=== PATIENT | male | born 1995 | race Caucasian/White ===

== ENCOUNTER → 2018-09-02 | Outpatient (CLI) | payer BC ==
[~2018-09-02] MED LIST: AMOX500C2 PO; CFR250T PO; ONDA8TAB9 PO; PRD20T PO; PRM25T PO; TRAM50TA2 PO
--- NOTE | 2018-09-02 15:31 | Diagnostic Imaging Report ---
CLINICAL INDICATION: Patient states she has been having increased headaches, migraines. EXAM: MRI of the brain performed without IV contrast. Sequences include axial DWI, ADC map, axial T2, axial FLAIR, axial T1, coronal gradient echo, and sagittal T1. COMPARISON: None. FINDINGS: There are low-lying cerebellar tonsils of up to 7 mm, which is most pronounced on the right side. There is also tented appearance of the cerebellar tonsils. There is crowding of the foramen magnum. There is no cervical cord syrinx. There is no evidence of acute cerebral infarct, intracranial hemorrhage, or gross mass effect. The brain parenchymal volume appears appropriate for patient's age. There are a few focal areas of high T2 signal matter changes involving the bilateral frontal lobe subcortical white matter regions (right side more than the left); the largest area measures roughly 3 mm. There is normal martinez-white matter distinction. There is no significant midline shift or herniation. There is no evidence of hydrocephalus. The basal cisterns are unremarkable. The skull, extracranial soft tissue, and orbits are unremarkable. The paranasal sinuses are unremarkable. Temporal bones show no significant abnormality. IMPRESSION: 1: There is no evidence of acute intracranial process. 2: Chiari type I malformation. 3: There are nonspecific focal areas of high T2 signal white matter changes in both frontal lobe regions. These findings are nonspecific, but may be seen in patients with chronic migraine headaches. Dictated by: Dictated on workstation # [id number]
== END ==
LOC: RAD 14:21
PROVIDERS: ATTEND Nurse Practitioner Family
DX: G93.5 Compression of brain (principal); R90.82 White matter disease, unspecified
CPT/HCPCS: 70551

== ENCOUNTER 2021-03-12 22:13 | Emergency (ER) | payer OTHER ==
[~2021-03-12] VITALS: Ht 182.8 cm; Wt 100.0 kg
--- NOTE | 2021-03-12 22:41 | ED Cough/URI ---
General Chief Complaint: COVID19 Suspect/Confirmed Stated Complaint: COVID+ Nursing Triage Note: Pt reports testing positive for COVID 5 days ago and is wanting an infusion for COVID. Pt denies chest pain, SOA, or fever. History of Present Illness Date Seen by Provider: Mar 12, 2021 Time Seen by Provider: 22:30 Initial Comments 25-year-old male who is here because he is positive for Covid. Patient reports that he started out with some symptoms 6 days ago and tested +5 days ago. Complains of some generalized body aches, cough, sore throat, headache. Patient is here because he is not getting better and he was wanting "an infusion" patient denies any chest pain, shortness of breath or fever. Allergies and Home Medications Allergies Coded Allergies: hydrocodone (Verified Allergy, HIVES, 04/23/13) Patient Home Medication List Home Medication List Reviewed: Yes Promethazine Hcl (Phenergan Tab) 25 Mg Tab, 1 TAB PO QID PRN for NAUSEA/VOMITING Prescribed by: ROSHAN AKERS on 03/05/14 0356 Review of Systems Review of Systems Constitutional: malaise EENTM: other (Scratchy throat) Respiratory: cough; No short of breath Cardiovascular: No chest pain Gastrointestinal: No nausea, No vomiting Musculoskeletal: see HPI Skin: no symptoms reported Psychiatric/Neurological: Headache Hematologic/Lymphatic: No Symptoms Reported Immunological/Allergic: no symptoms reported Past Duafcec-Iivqnx-Rhtkqv Hx Patient Social History Tobacco Use?: No Use of E-Cig and/or Vaping dev: No Substance use?: No Alcohol Use?: No Immunizations Up To Date Tetanus Booster (TDap): Less than 5yrs PED Vaccines UTD: No Past Medical History Reproductive Disorders: No Adverse Reaction/Blood Tranf: No Family Medical History Patient reports no known family medical history. Physical Exam Vital Signs - First Documented 03/12/21 22:23 Temp 36.3 Pulse 116 B/P (MAP) 150/87 (108) Pulse Ox 95 O2 Delivery Room Air Capillary Refill : Less Than 3 Seconds Height: 5'11" Weight: 190lbs. 0.0oz. [id number]; 29.00 BMI Method:Stated General Appearance: no apparent distress, mild distress Neck: supple Respiratory: lungs clear, normal breath sounds Cardiovascular: normal peripheral pulses, tachycardia Gastrointestinal: non tender, soft Neurologic/Psychiatric: no motor/sensory deficits, alert, normal mood/affect, oriented x 3 Skin: normal color, warm/dry Progress/Results/Core Measures Suspected Sepsis SIRS Temperature: Pulse: 116 Respiratory Rate: Blood Pressure 150 /87 Mean: 108 Results/Orders Vital Signs/I&O 03/12/21 22:23 Temp 36.3 Pulse 116 B/P (MAP) 150/87 (108) Pulse Ox 95 O2 Delivery Room Air Capillary Refill : Less Than 3 Seconds Blood Pressure Mean: 108 Progress Note : Progress Note Patient states he is mainly here because of his family wanted him checked out. Patient was offered a chest x-ray but declined. I did fax [facility] information to [facility] for [facility] Regeneron subcutaneous shots. He should contact them tomorrow to arrange a time if he meets their qualifications Departure Impression Primary Impression: COVID-19 Disposition: 01 HOME, SELF-CARE Condition: Stable Departure-Patient Inst. Referrals: NO,LOCAL PHYSICIAN (PCP/Family) Primary Care Physician Patient Instructions: COVID-19 (DC) Add. Discharge Instructions: Drink plenty of fluids, please contact [facility] around noon tomorrow if you have not heard from them to see if you qualify for a Regeneron infusion. Tylenol or ibuprofen as needed for fever and body aches All discharge instructions reviewed with patient and/or family. Voiced understanding. Scripts Budesonide (Pulmicort Flexhaler) 180 Mcg [email or web address] 180 MCG IH BID, #1 EA Prov: SUMMER WHYTE DO 03/12/21 SUMMER WHYTE DO Mar 12, 2021 22:41
[2021-03-12] MEDS ORDERED: BUDE180A IH (22:43)
[2021-03-12 22:45] VITALS: BP 150/87
== END 2021-03-12 22:45 | disposition home or self-care (01) ==
LOC: EDUNIT# 22:13 → ER FS 22:16
DX: U07.1 COVID-19 (principal); Z73.0 Burn-out
CPT/HCPCS: 99281